=== PATIENT | male | born 1955 | race Caucasian/White ===

== ENCOUNTER → 2019-10-07 09:51 | Outpatient (POV) | payer OTHER, SELFPAY ==
[2019-10-07 10:21] VITALS: BMI 24.9
--- NOTE | 2019-10-07 11:23 | [facility].PMCON ---
Assessment and Plan (1) Degenerative joint disease (DJD) of lumbar spine Current visit: Yes Status: Chronic Qualifiers: Spinal osteoarthritis complication: with radiculopathy Qualified Code(s): M47.26 - Other spondylosis with radiculopathy, lumbar region Category: Medical Code(s): M47.816 - Spondylosis without myelopathy or radiculopathy, lumbar region - Assessment and plan all Dx Assessment and Plan for all problems:: I discussed with the patient that we would not be prescribing any narcotic medication. He understands. Patient's been instructed to call the office if he has any further need for us in the future. Dr. Chau has reviewed this note and agrees with this plan of care. This note was dictated using voice recognition software and may contain errors or omissions HPI - Data of Consult Consult date: 10/07/19 Requesting Physician: Amanda Funes APRN Primary Care Provider: Referral Provider, MD - Consult Narrative Reason for consult: Back pain, leg pain History of present illness: Mr. Schaefer is a 64 year old male who presents today via telehealth consultation regards to his low back and leg pain. Patient states he has had back pain for 5 to 6 years. He has broken his neck twice he states. Patient states he tried physical therapy a long time ago however it made everything worse. Patient does have an MRI showing osteophyte complex along with disc protrusion L3-L4 level. Patient states that he is not interested in any injective therapy. He states he is scared of needles . Patient states that he was on narcotic medications from his primary care physician which worked well for him and he would like to continue these. I discussed with him that we do not do any narcotic medication management but we would be happy to do any injective therapy if he changes his mind in the future. He rates his pain today an 8 out of 10. CC: Amanda Funes APRN [facility] History I have reviewed the patient's past medical history: Yes Medical History: Reports:: Hypertension Denies:: Diabetes Mellitus Type 1, Diabetes Mellitus Type 2 *Have you ever received a pneumonia vaccine?: No *Have you received a flu vaccine this season?: No Other Medical History: Reports: Arthritis Amputation: No Fractures: No - *Social History Smoking Status: Current every day smoker Tobacco Type: cigarettes # Packs/Day (cigarettes): 1 Alcohol Intake: never *Occupational Status:: other Housing: house Household Members: other *Travel in the last 8 weeks: None Family Hx:: Unable to obtain Review of Systems - Review of Systems ROS General: no recent weight change, no fever, no sleep disturbances Respiratory: no cough, no shortness of air, no recurring pulmonary infections Cardiovascular/Peripheral Vascular: No chest pain, No palpitations, no edema, no shortness of breath. Gastrointestinal: no new onset incontinence, normal bowel movements reported Genitourinary: no new onset incontinence Musculoskeletal: Neck pain, back pain, leg pain Psychiatric: normal mood/ affect, Neurological: [denies new onset weakness in extremities], [denies new onset balance issues] Objective Narrative: Physical exam: Constitutional: Healthy appearing, well-developed, alert, in no acute distress Psychiatric: Judgment and insight intact, Alert and oriented x4 Mood and affect: Mood normal, affect appropriate Head and face: Inspection: Normocephalic atraumatic, extraocular movement intact Respiratory: Breathing nonlabored, nondyspneic Cardiovascular: No cyanosis, clubbing, or edema observed Skin: Head and neck: Skin with no lesions or rash observed Gait: Able to walk without assistive device: Able to heel and toe walk Neurologic: Sensation grossly intact per patient Musculoskeletal: Decreased range of motion cervical and lumbar spine noted on video
== END ==
PROVIDERS: Visit Provider Clinical Nurse Specialist Family Health
DX: M47.26 Other spondylosis with radiculopathy, lumbar region (principal)
CPT/HCPCS: 99202